=== PATIENT | female | born 1970 | race Caucasian/White ===

== ENCOUNTER 2016-09-27 16:39 | Emergency (ER) | payer MEDICAID ==
[~2016-09-27] VITALS: Ht 172.7 cm; Wt 88.5 kg
--- NOTE | 2016-09-27 16:47 | ER.PDOC ---
General Chief Complaint: Flank Pain Stated Complaint: FLANK PAIN Time seen by MD: 16:45 Source: patient, EMS History of Present Illness Initial Comments Pain on right flank started this afternoon, pt has history of kidney stones Timing/Duration: 1-3 hours Allergies: Coded Allergies: droperidol (Verified Allergy, Severe, Rash, 09/27/16) ketamine (Verified Allergy, Severe, Rash, 09/27/16) ketorolac (Verified Allergy, Severe, Rash, 09/27/16) paroxetine (Verified Allergy, Severe, Rash, 09/27/16) prochlorperazine (Verified Allergy, Severe, Rash, 09/27/16) sumatriptan (Verified Allergy, Severe, Rash, 09/27/16) Home Meds Reported Medications Metoprolol Tartrate 50MG (Lopresser 50MG)50 Mg Tablet1 Tab PO BID #60 TAB Ref 5 09/27/16 Sertraline Hcl (Zoloft)100 Mg Tablet2 Tab PO DAILY #30 TAB Ref 5 09/27/16 Vital Signs First Vital Signs Date Time Temp Pulse Resp B/P Pulse Ox O2 Delivery O2 Flow Rate FiO2 09/27/16 16:40 99.5 74 16 95 Last Vital Signs Date Time Temp Pulse Resp B/P Pulse Ox O2 Delivery O2 Flow Rate FiO2 09/27/16 16:40 99.5 74 16 95 Past Medical History Medical History: hypertension Surgical History: cholecystectomy LMP (females 10-50): 3 months Social History Smoking: cigarettes, less than 1 pack/day Alcohol Use: none Drug Use: none Constitutional: see HPI EENTM: see HPI Respiratory: see HPI Cardiovascular: see HPI Gastrointestinal: see HPI Genitourinary: see HPI Musculoskeletal: see HPI Skin: see HPI Psychiatric/Neurological: see HPI Endocrine: see HPI Hematologic/Lymphatic: see HPI Physical Exam General Appearance: Mild Distress HEENT: PERRL/EOMI, Normal ENT Inspection, TMs Normal, Pharynx Normal Neck: Non-Tender, Full Range of Motion, Supple, Normal Inspection Respiratory: chest non-tender, lungs clear, normal breath sounds, no respiratory distress, no accessory muscle use Cardiovascular: Normal Peripheral Pulses, Regular Rate, Rhythm, No Edema, No Gallop, No JVD, No Murmur Gastrointestinal: Normal Bowel Sounds, Soft, Tenderness (right flank) Back: Normal Inspection, No CVA Tenderness, No Vertebral Tenderness Extremities: Normal Range of Motion, Non-Tender, Normal Inspection, No Pedal Edema, No Calf Tenderness, Normal Capillary Refill, Pelvis Stable Neurologic/Psychiatric: rf technician II-XII NML as Tested, No Motor/Sensory Deficits, Alert, Normal Mood/Affect, Oriented x 3 Skin: Normal Color, Warm/Dry Lymphatic: No Adenopathy Course Blood Pressure Systolic: 156 Blood Pressure Diastolic: 85 Blood Pressure Mean: 108 Departure Time of Disposition: 19:29 Disposition: 01 HOME, SELF-CARE Impression: Primary Impression: Renal colic Additional Impressions: Urinary tract infection Hematuria Condition: Stable Patient Instructions: Kidney Stones, [id number] Problem Qualifiers ILIA LONG MD Sep 27, 2016 16:47
[2016-09-27] MEDS ORDERED: METO50TA2 PO (16:48)
[2016-09-27] MEDS ORDERED: SERT100T PO (16:48)
[2016-09-27] MEDS ORDERED: NS 1000ML 1,000 ML STA (16:58)
[2016-09-27] MEDS ORDERED: MORPHINE SULFATE IV STA ×2 (16:58→19:07)
[2016-09-27] MEDS ORDERED: FLOMAX PO STA (16:58)
[2016-09-27 17:18] LABS: BASOPHIL # 0.1 10^3/uL (0.0-0.1); BASOPHIL % 0.7 % (0.0-0.2); EOSINOPHIL # 0.4 10^3/uL (0.0-0.2); EOSINOPHIL % 4.1 % (0.0-5.0); HEMATOCRIT 34.5 % (36.0-46.0); HEMOGLOBIN 11.3 g/dL (12.0-15.0); LYMPHOCYTES # 2.1 10^3/uL (1.0-4.8); LYMPHOCYTES % 20.6 % (24.0-44.0); MEAN CELL HGB 27.4 pg (26-34); MEAN CELL HGB CONCENTRATION 32.8 g/dL (33-37); MEAN CORP VOLUME 83.5 fL (78-100); MONOCYTES % 9.9 % (5.0-12.0); NEUTROPHIL # 6.4 10^3/uL (1.8-7.7); NEUTROPHILS % 64.3 % (41.0-85.0); RED BLOOD CELL 4.13 10^6/uL (4.00-5.20); RED CELL DISTRIBUTION WIDTH 18.5 % (11.5-14.5); WHITE BLOOD CELL 9.9 10^3/uL (4.5-11.0)
[2016-09-27 17:32] LABS: ALANINE AMINOTRANSFERASE 21 U/L (12-78); ALBUMIN 3.3 g/dL (3.4-5.0); ALKALINE PHOSPHATASE 136 U/L (50-136); ANION GAP 18.5; ASPARTATE AMINO TRANSFERASE 12 U/L (0-35); CALCIUM 8.6 mg/dL (8.4-10.5); CARBON DIOXIDE 18.8 mmol/L (20.0-32); GLUCOSE 92 mg/dL (70-110)
[2016-09-27] MEDS ORDERED: FLOMAX ONE (17:37)
[2016-09-27] MEDS ORDERED: NS 1000ML 1,000 ML ONE (17:37)
[2016-09-27] MEDS ORDERED: MORPHINE SULFATE ONE ×2 (17:38→19:14)
--- NOTE | 2016-09-27 17:45 | NUR ---
CT PT TO RAD FOR CT ABD/PELVIS
--- NOTE | 2016-09-27 18:00 | NUR ---
RAD PT BACK FROM CT
[2016-09-27] MEDS ORDERED: ZOFRAN ONE ×2 (18:12→19:14)
[2016-09-27] MEDS ORDERED: ZOFRAN IV STA ×2 (18:14→19:07)
--- NOTE | 2016-09-27 18:15 | DIREP ---
PROCEDURE:CT ABDOMEN/PELVIS W/O CONTRAST COMPARISON:None. INDICATIONS:Kidney stone TECHNIQUE:Axial images were created through the abdomen and pelvis without intravenous contrast material. No oral contrast was administered. Sagittal and coronal reconstructions were performed from source images.The study was reviewed on abdominal, lung, liver and bone windows. FINDINGS: LUNG BASES:Normal. No visible pulmonary or pleural disease. LIVER:Normal. No significant liver lesions are identified. BILIARY:Status post cholecystectomy. PANCREAS:Normal. No lesion, fluid collection, ductal dilatation, or atrophy. SPLEEN:History of a normal-appearing spleen, multiple small round densities seen in the left upper quadrant, question splenosis. ADRENALS:Normal. No mass or enlargement. URINARY TRACT:Normal. No focal lesions or hydronephrosis. No radiopaque stones are seen in the kidneys. No stones are identified at the UPJ, UVJ, ureters or within the bladder. The right kidney is low in position, in the pelvis and has a horizontal axis. AORTA/VASCULAR:Normal. No aneurysm. RETROPERITONEUM:Normal. No mass or adenopathy. BOWEL/MESENTERY:Normal. There is no intestinal obstruction, free fluid, free air or mesenteric inflammatory changes. No pericecal inflammatory changes are seen. No diverticulitis, free air or free fluid is identified. ABDOMINAL WALL:Noticed a midline defect involving the intra-abdominal wall, the maximum transverse diameter, is approximately 9.5 cm. The ventral hernia just to the left lobe of the liver, the transverse colon, and the peritoneal fat. No obstruction is seen. PELVIC ORGANS:Status post hysterectomy. BONES:Normal for age. No bony lesion or acute fracture. OTHER:Negative. CONCLUSION: No radiopaque stones are seen the urinary tract. No stones are identified in the kidneys, UPJ, UVJ, ureters or within the bladder. Low lying right kidney with horizontal axis. Status post cholecystectomy and hysterectomy. Suspect splenosis. A large midline ventral hernia containing the left lobe of the liver, the transverse colon and the peritoneal fat. No small bowel obstruction is seen. Dictated by: Akhil Gordon MD on 09/27/2016 at 06:10 PM
[2016-09-27 18:51] LABS: BILIRUBIN,URINE NEGATIVE (NEGATIVE); PH,URINE 6.5 (5.0-6.0); UROBILINOGEN,URINE NORMAL (NEGATIVE)
[2016-09-27 18:54] LABS: APPEARANCE,URINE CLOUDY (CLEAR); UA COLOR YELLOW (YELLOW)
[2016-09-27 18:57] LABS: WBC,URINE 0-2 WBC/HPF (0-2)
[2016-09-27] MEDS ORDERED: ROCEPHIN ONE (19:14)
[2016-09-27] MEDS ORDERED: NS 100ML 100 ML IV ONE (19:14)
[2016-09-27] MEDS ORDERED: ROCEPHIN 1,000 MG in NS 100ML 100 ML IV ONE (19:30)
[2016-09-27 20:14] VITALS: BP 145/79
== END 2016-09-27 20:15 | disposition home or self-care (01) ==
LOC: EDBD 16:39 → ER 16:39
DX: N23 Unspecified renal colic (principal); N39.0 Urinary tract infection, site not specified; R31.9 Hematuria, unspecified; I10 Essential (primary) hypertension; F17.210 Nicotine dependence, cigarettes, uncomplicated; Z87.442 Personal history of urinary calculi; Z88.8 Allergy status to other drugs, medicaments and biological substances; Z88.6 Allergy status to analgesic agent
CPT/HCPCS: 36415; 74176; 80053; 81000; 84703; 85025; 96361; 96365; 96375; 96376; 99285; J2270 ×2; J2405 ×2; J7030; J0696; 81025